=== PATIENT | male | born 1945 | race Caucasian/White ===

== ENCOUNTER → 2018-01-02 | Outpatient (CLI) | payer OTHER ==
--- NOTE | 2018-01-03 12:08 | XCELERA REPORT ---
[address] [address] Lower Extremity Arterial Evaluation Name: EVONNE JAMIL JR Age: 72 yrs Gender: Male : 1945 Patient Status: Outpatient Patient Location: Study Date: 01/02/2018 01:05 PM Procedure: A color flow and duplex scan of the lower extremity arteries was performed bilaterally with velocity and waveform anaylsis. Ankle brachial indicies performed. 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 Biphasic in the Deep Femoral. Monophasic thereafter to the infrageniculate vessels. 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 Ankle Brachial index is 0.7 . Left Side Arterial Evaluation Normal velocity and biphasic waveforms noted in the Common Femoral artery. Monophasic from Popliteal to the infrageniculate vessels. 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 Ankle Brachial index is 0.8 . Interpretation Summary Severe hemodynamically significant lesions in the bilateral lower extremities, on duplex imaging, at rest. : NORA MARTINEZ > Nora Martinez
== END ==
LOC: SP 12:18
PROVIDERS: ATTEND Surgery
DX: I73.9 Peripheral vascular disease, unspecified (principal)
CPT/HCPCS: 93925